=== PATIENT | female | born 2000 | race Caucasian/White ===

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

== ENCOUNTER → 2018-02-11 | Outpatient (REF) | payer OTHER | LOC: M LAB REF 12:40 | DX: Z34.83 Encounter for supervision of other normal pregnancy, third trimester (principal) ==

== ENCOUNTER 2018-03-02 16:59 | Outpatient (CLI) | payer OTHER | END 2018-03-02 20:35 | disposition home or self-care (01) | LOC: M LDO 16:59 | DX: O47.1 False labor at or after 37 completed weeks of gestation (principal); Z3A.39 39 weeks gestation of pregnancy | CPT/HCPCS: 59025 ==

== ENCOUNTER 2018-03-03 23:10 | Inpatient (IN) | payer OTHER ==
[2018-03-04 01:11] LABS: HEMOGLOBIN 10.4 g/dl (12.0-15.5); MEAN CORPUSCULAR HEMOGLOBIN 26.5 pg (27.0-33.0); MEAN CORPUSCULAR HGB CONC 32.5 g/dl (32.0-36.5); MEAN CORPUSCULAR VOLUME 81.6 fl (80.0-96.0); PLATELET COUNT, AUTOMATED 239 10^3/uL (150-450); RED BLOOD COUNT 3.92 10^6/uL (4.00-5.40); RED CELL DISTRIBUTION WIDTH 14.3 % (11.5-14.5)
[2018-03-04] MEDS: LR 1,000 ML IV ×3 (08:11→18:44)
[2018-03-04] MEDS: OXYTOCIN DRIP 30 UNITS in APPROPRIATE DILUENT 1 EA IV (08:12)
[2018-03-04] MEDS: ONDANSETRON 4MG/2ML VIAL (J2405) IV (09:04)
[2018-03-04] MEDS ORDERED: FENTANYL 2MCG/ML ROPIVACAINE 0.2% IN 0.9% NACL 200ML IVBAG As Ordered (09:51)
[2018-03-04] MEDS: LACTATED RINGER'S 1000 ML IV (10:24)
[2018-03-04] MEDS ORDERED: diphenhydrAMINE INJ 50MG/ML VIAL (J1200) IV (12:00)
[2018-03-04] MEDS ORDERED: ePHEDrine SULFATE 25 MG/5 ML(5MG/ML) SYRINGE IV (12:00)
[2018-03-04] MEDS ORDERED: EPIDURAL COMMENT XX (12:00)
[2018-03-04] MEDS ORDERED: EPIDURAL/PCA KEYS XX (12:00)
[2018-03-04] MEDS ORDERED: REFRIGERATOR IV KEYS XX (12:00)
[2018-03-04] MEDS ORDERED: FENTANYL/ROPIVACAINE/NACL BAG 200 ML EPIDURAL (12:00)
[2018-03-04] MEDS ORDERED: NALOXONE INJ 0.4 MG/1 ML VIAL (J2310) IV (12:00)
[2018-03-04] MEDS ORDERED: ONDANSETRON 4MG/2ML VIAL (J2405) IV (12:00)
[2018-03-04] MEDS ORDERED: LACTATED RINGER'S 1000 ML IV (12:00)
[2018-03-04 20:29] LABS: CORD GAS ABE V -6.6; CORD GAS HCO3 V 18.6 MEQ/L; CORD GAS O2 SAT V 84.5 %; CORD GAS PCO2 V 36.5 mmHg; CORD GAS PH V 7.325 UNITS; CORD GAS PO2 V 42.9 mmHg; CORD GAS SBC V 18.9 MEQ/L; CORD GAS TCO2 V 19.7 MEQ/L
[2018-03-04] MEDS ORDERED: DOCUSATE SODIUM 100 MG CAP PO (20:45)
[2018-03-04] MEDS ORDERED: DIBUCAINE 1% OINTMENT 30GM TOP (20:45)
[2018-03-04] MEDS: miSOPROStol 200 MCG TAB (S0191) PR (20:45)
[2018-03-04] MEDS ORDERED: MEASLES,MUMPS,RUBELLA VACCINE INJ (MMR-II) (90707) SC (20:45)
[2018-03-04] MEDS ORDERED: MOM 30ML SUSPENSION UDC PO (20:45)
[2018-03-04] MEDS ORDERED: ACETAMINOPHEN 500 MG TAB PO (20:45)
[2018-03-04] MEDS: METHYLERGONOVINE MALEATE 0.2 MG TAB PO (20:45)
[2018-03-04] MEDS ORDERED: ANUSOL HC CREAM 30GM TOP (20:45)
[2018-03-04] MEDS ORDERED: RHOGAM 300 MCG (1500 IU) INJ (J2790) IM (20:45)
[2018-03-04] MEDS: IBUPROFEN 800 MG TAB PO (22:48)
[2018-03-05] MEDS: METHYLERGONOVINE MALEATE 0.2 MG TAB PO ×3 (02:46→14:33)
[2018-03-05] MEDS: FERROUS SULFATE 325MG TAB PO (08:29)
[2018-03-05] MEDS: PRENATAL VITAMINS CHEWABLE TABLET PO (08:29)
[2018-03-05] MEDS ORDERED: METHYLERGONOVINE MALEATE 0.2 MG TAB PO (20:30)
[2018-03-05] MEDS: IBUPROFEN 800 MG TAB PO (20:41)
[2018-03-06] MEDS: FERROUS SULFATE 325MG TAB PO (08:38)
[2018-03-06] MEDS: PRENATAL VITAMINS CHEWABLE TABLET PO (08:39)
== END 2018-03-06 21:28 | disposition home or self-care (01) | DRG 560 ==
LOC: M LDO 23:10 → M LDI 03-04 00:18 → M OBS 03-04 22:26
PROVIDERS: Obstetrics & Gynecology
PROC: 10E0XZZ Delivery of Products of Conception, External Approach (ICD-10-PCS; principal; 2018-03-04)
PROC: 0KQM0ZZ Repair Perineum Muscle, Open Approach (ICD-10-PCS; 2018-03-04)
DX: O70.1 Second degree perineal laceration during delivery (principal); Z37.0 Single live birth; Z3A.39 39 weeks gestation of pregnancy; Z90.49 Acquired absence of other specified parts of digestive tract; Z88.0 Allergy status to penicillin; O77.0 Labor and delivery complicated by meconium in amniotic fluid

== ENCOUNTER 2018-04-01 16:17 | Emergency (ER) | payer OTHER | END 2018-04-01 17:49 | disposition home or self-care (01) | LOC: M ED 16:17 | DX: M54.41 Lumbago with sciatica, right side (principal) | CPT/HCPCS: 99282 ==

== ENCOUNTER → 2018-10-27 | Outpatient (CLI) | payer OTHER ==
[~2018-10-27] MED LIST: IBUP-1114 PO; MAPA500T2 PO; MULTTAB20 PO; PERC5TAB12 PO; PRED20TA PO; ZOFR4TAB14 PO
== END ==
LOC: M LAB 11:13
PROVIDERS: ATTEND Advanced Practice Midwife
DX: Z36.89 Encounter for other specified antenatal screening (principal)

== ENCOUNTER → 2018-12-01 | Outpatient (CLI) | payer OTHER ==
[2018-12-01 13:22] LABS: BASO % 0.4 % (0.0-1.0); EOS # 0.1 10^3/uL (0.0-0.50); EOS % 1.3 % (0.0-3.0); HEMATOCRIT 37.8 % (36.0-47.0); HEMOGLOBIN 12.2 g/dl (12.0-15.5); LYMPH # 1.9 10^3/uL (1.5-6.5); LYMPH % 18.7 % (24.0-44.0); MEAN CORPUSCULAR HEMOGLOBIN 26.9 pg (27.0-33.0); MEAN CORPUSCULAR HGB CONC 32.3 g/dl (32.0-36.5); MEAN CORPUSCULAR VOLUME 83.3 fl (80.0-96.0); MONO # 0.6 10^3/uL (0.0-0.8); MONO % 5.8 % (0.0-5.0); NEUTROPHILS # 7.6 10^3/uL (1.8-7.7); NEUTROPHILS % 73.5 % (36.0-66.0); PLATELET COUNT, AUTOMATED 279 10^3/uL (150-450); RED BLOOD COUNT 4.54 10^6/uL (4.00-5.40); WHITE BLOOD COUNT 10.4 10^3/uL (4.0-10.0)
[2018-12-01 14:45] LABS: CHLAMYDIA DNA AMPLIFICATION NEGATIVE (NEGATIVE); GC DNA AMPLIFICATION NEGATIVE (NEGATIVE)
[2018-12-02 10:51] LABS: HEPATITIS C VIRUS ABY INDEX 0.1 INDEX (<0.8); HIV 1&2 SCREEN CENTAUR NEGATIVE (NEGATIVE); RUBELLA IgG QUALITATIVE IMMUNE (IMMUNE)
== END ==
LOC: M SMT 11:55
PROVIDERS: ATTEND Advanced Practice Midwife
DX: Z36.89 Encounter for other specified antenatal screening (principal)

== ENCOUNTER → 2018-12-28 | Outpatient (CLI) | payer OTHER ==
--- NOTE | 2018-12-29 03:49 | REP ---
Clinical: Anatomical evaluation. Comparison: 12/09/2017 . Findings: Examination demonstrates a single live intrauterine in cephalic presentation. motion is identified by technologist. Placenta is noted posterior and grade 1 without evidence for placenta previa or abruption. Amniotic fluid volume is normal. Cervix measures 3.1 cm in length and appears closed. No evidence for nuchal cord. Gestational age by LMP 20 weeks 4 days with LILLIANA 05/13/2019 . Gestational age by current measurements 20 weeks 0 days with LILLIANA 05/17/2019 . FHR equals 127 beats per minute. BPD 4.7 cm 20 weeks 1 day HC 16.8 cm 19 weeks 3 days AC 14.9 cm 20 weeks 1 day FL 3.3 cm 20 weeks 3 days HL 3.3 cm 21 weeks 0 days HC/AC ratio 1.13 Estimated weight 337 grams ( 33rd percentile). Anatomical assessment demonstrates normal structures including cranium, choroid plexus, cavum, cerebellum/posterior fossa, facial features, lungs, four-chamber heart, diaphragm, stomach, cord insertion/three-vessel cord, kidneys/bladder, and extremities. Impression: 1. Single live intrauterine in cephalic presentation demonstrating appropriate interval growth. 2. Limited evaluation of the cardiac ventricular outflow tracts and spine. Remainder of the anatomical assessment is complete and normal. Electronically Signed by Radhames King MD 12/29/2018 03:42 A
== END ==
LOC: M RAD 09:28
PROVIDERS: ATTEND Obstetrics & Gynecology
DX: Z34.82 Encounter for supervision of other normal pregnancy, second trimester (principal); Z36.89 Encounter for other specified antenatal screening; Z3A.20 20 weeks gestation of pregnancy

== ENCOUNTER → 2018-12-29 | Outpatient (REF) | payer OTHER ==
[2018-12-29 15:44] LABS: FREE T4 0.99 NG/DL (0.78-1.33); THYROID STIMULATING HORMONE 0.917 uIU/ML (0.463-3.98)
== END ==
LOC: M SFHCADAM 11:18
PROVIDERS: ATTEND Physician Assistant Medical
DX: R00.2 Palpitations (principal)

== ENCOUNTER → 2019-01-04 | Outpatient (CLI) | payer OTHER ==
--- NOTE | 2019-01-08 23:36 | HOLTMON ---
[facility] Test Date: 2019-01-04 Pat Name: LITZY CELIS Department: Room: - Gender: Crystal Evaluator: La Nena Ratliff/TIFFANIE TAPIA : 2000 Requested By: ISABEL Acuña PA-C Order Number: [id number] Reading MD: Garrick Nieves Interpretive Statements PATIENT FEELS PALPITATIONS AND SHORT OF BREATH MOST OF THE TIME. Normal sinus rhythm with a maximum heart of 138 bpm noted at 11:48:06 AM and a minimum rate of 51 bpm at 2:36:49 AM. No activity reported with the maximum heart rate. Occasional benign sinus arrhythmia noted. No pause. No PACs. Very rare isolated PVCs. No ventricular run. Symptoms: Palpitations and shortness of breath without any associated arrhythmias. Relatively normal Holter monitor Electronically Signed On 01-08-2019 23:36:11 EDT by Garrick Nieves
== END ==
LOC: M EKG 13:00
PROVIDERS: ATTEND Physician Assistant Medical
DX: R00.2 Palpitations (principal)

== ENCOUNTER → 2019-02-16 | Outpatient (CLI) | payer OTHER ==
[2019-02-16 13:47] LABS: HEMATOCRIT 33.7 % (36.0-47.0); MEAN CORPUSCULAR HEMOGLOBIN 28.4 pg (27.0-33.0); MEAN CORPUSCULAR HGB CONC 32.6 g/dl (32.0-36.5); MEAN CORPUSCULAR VOLUME 86.9 fl (80.0-96.0); PLATELET COUNT, AUTOMATED 251 10^3/uL (150-450); RED BLOOD COUNT 3.88 10^6/uL (4.00-5.40); WHITE BLOOD COUNT 11.8 10^3/uL (4.0-10.0)
--- NOTE | 2019-02-16 13:49 | REP ---
OB ULTRASOUND: Real-time sonographic evaluation of gravid uterus performed utilizing transabdominal technique. There is a single living intrauterine gestation, estimated gestational age 27 weeks 5 days, EDC 05/13/2019. Today's measurements indicate appropriate growth. BPD 70 mm = 28 weeks 1 day, 60th percentile HC 258 mm = 28 weeks 0 days, 57th percentile AC 232 mm = 27 weeks 4 days, 46th percentile Femur length 54 mm = 28 weeks 4 days, 68th percentile HC/AC ratio 1.11, within normal range. Estimated weight 1152 grams, 48th percentile. Cervix closed and measures 3.3 cm in length. heart rate 145 beats per minute. Amniotic fluid within normal limits, XIAO 14.8 within normal range of 9.4 to 22.7. S/D ratio 3.07, and RI 0.67 within normal range. SEEN/GROSSLY UNREMARKABLE Lateral ventricles Yes Posterior fossa No Upper lip No Four-chamber heart Yes LVOT Yes RVOT Yes Stomach Yes Cord insertion Yes Three vessel cord Yes Kidneys Yes Bladder Yes Spine Yes position: Vertex. Placenta: Posterior and fundal and grade 0 with no previa or abruption. Electronically Signed by Leeroy Moya MD 02/16/2019 04:33 P
== END ==
LOC: M RAD 10:58
PROVIDERS: ATTEND Advanced Practice Midwife
DX: Z34.82 Encounter for supervision of other normal pregnancy, second trimester (principal); Z3A.27 27 weeks gestation of pregnancy

== ENCOUNTER → 2019-04-29 | Outpatient (REF) | payer OTHER ==
[~2019-04-29] MED LIST changes: +PRENTAB9 PO
== END ==
LOC: M LAB REF 12:54
PROVIDERS: ATTEND Advanced Practice Midwife
DX: Z34.83 Encounter for supervision of other normal pregnancy, third trimester (principal)

== ENCOUNTER → 2019-05-06 | Outpatient (CLI) | payer OTHER | LOC: M SMT 10:46 | PROVIDERS: ATTEND Advanced Practice Midwife | DX: Z34.83 Encounter for supervision of other normal pregnancy, third trimester (principal) ==

== ENCOUNTER 2019-05-09 11:42 | Outpatient (CLI) | payer OTHER ==
[~2019-05-09] VITALS: Ht 172.7 cm; Wt 104.5 kg
[~2019-05-09 11:42] MED LIST changes: -PRENTAB9 PO
[2019-05-09 12:00] VITALS: BP 142/60
[2019-05-09] MEDS ORDERED: PRENTAB9 PO (12:14)
[2019-05-09 12:24] VITALS: BP 104/50
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
== END 2019-05-09 14:26 | disposition home or self-care (01) ==
LOC: M LDO 11:42
PROVIDERS: ATTEND Obstetrics & Gynecology
DX: Z04.3 Encounter for examination and observation following other accident (principal); M54.5 Low back pain; Z3A.37 37 weeks gestation of pregnancy
CPT/HCPCS: 59025; 76815; 76819; 76820; G0378; G0463

== ENCOUNTER 2019-05-11 21:46 | Inpatient (IN) | payer OTHER ==
[~2019-05-11] VITALS: Ht 172.7 cm; Wt 103.1 kg
[~2019-05-11 21:46] MED LIST changes: +PRENTAB9 PO
[2019-05-11 22:09] VITALS: BP 117/66
[2019-05-11 23:33] VITALS: BP 115/63
[2019-05-12] VITALS (49 sets, daily range): BP systolic 108–168; BP diastolic 52–92
[2019-05-12 01:35] LABS: HEMATOCRIT 32.2 % (36.0-47.0); HEMOGLOBIN 10.2 g/dl (12.0-15.5); MEAN CORPUSCULAR HGB CONC 31.7 g/dl (32.0-36.5); MEAN CORPUSCULAR VOLUME 78.9 fl (80.0-96.0); PLATELET COUNT, AUTOMATED 247 10^3/uL (150-450); RED BLOOD COUNT 4.08 10^6/uL (4.00-5.40); WHITE BLOOD COUNT 12.1 10^3/uL (4.0-10.0)
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
[2019-05-12] MEDS ORDERED: OXYTOCIN DRIP 30 UNITS in APPROPRIATE DILUENT 1 EA IV SCH (08:00)
[2019-05-12] MEDS: LR 1,000 ML IV SCH ×3 (08:11→21:47)
[2019-05-12] MEDS ORDERED: FENTANYL 2MCG/ML ROPIVACAINE 0.2% IN 0.9% NACL 100ML IVBAG As Ordered ONE (13:46)
[2019-05-12] MEDS: FENTANYL/ROPIVACAINE/NACL BAG 100 ML EPIDURAL SCH ×2 (14:05→21:52)
[2019-05-12] MEDS ORDERED: ePHEDrine SULFATE 25 MG/5 ML(5MG/ML) SYRINGE IV PRN (15:00)
[2019-05-12] MEDS ORDERED: EPIDURAL COMMENT XX SCH (15:00)
[2019-05-12] MEDS ORDERED: EPIDURAL/PCA KEYS XX PRN (15:00)
[2019-05-12] MEDS ORDERED: diphenhydrAMINE INJ 50MG/ML VIAL (J1200) IV PRN (15:00)
[2019-05-12] MEDS ORDERED: ONDANSETRON 4MG/2ML VIAL (J2405) IV PRN (15:00)
[2019-05-12] MEDS ORDERED: NALOXONE INJ 0.4 MG/1 ML VIAL (J2310) IV PRN (15:00)
[2019-05-12] MEDS ORDERED: REFRIGERATOR IV KEYS XX PRN (15:00)
[2019-05-12] MEDS ORDERED: LACTATED RINGER'S 1000 ML IV PRN (15:00)
[2019-05-13] VITALS (14 sets, daily range): BP systolic 119–143; BP diastolic 57–89
[2019-05-13] MEDS ORDERED: OXYTOCIN DRIP 30 UNITS in APPROPRIATE DILUENT 1 EA IV SCH ×2 (00:50→02:06)
[2019-05-13] MEDS ORDERED: METHYLERGONOVINE MALEATE 0.2 MG TAB PO PRN (01:00)
[2019-05-13] MEDS ORDERED: IBUPROFEN 600 MG TAB PO PRN (01:00)
[2019-05-13] MEDS ORDERED: IBUPROFEN 800 MG TAB PO PRN (01:00)
[2019-05-13] MEDS ORDERED: LIDOCAINE 1% MDV 20ML VIAL INFIL ONE (01:00)
[2019-05-13] MEDS ORDERED: DOCUSATE SODIUM 100 MG CAP PO PRN (01:00)
[2019-05-13] MEDS ORDERED: ACETAMINOPHEN 500 MG TAB PO PRN (01:00)
[2019-05-13] MEDS ORDERED: ANUSOL HC CREAM 30GM TOP PRN (01:00)
[2019-05-13] MEDS ORDERED: MEASLES,MUMPS,RUBELLA VACCINE INJ (MMR-II) (90707) SC SCH (01:00)
[2019-05-13] MEDS ORDERED: DIBUCAINE 1% OINTMENT 30GM TOP PRN (01:00)
[2019-05-13] MEDS ORDERED: ACETAMINOPHEN TAB 650MG DOSE (2X325MG) PO PRN (01:00)
[2019-05-13] MEDS ORDERED: RHOGAM 300 MCG (1500 IU) INJ (J2790) IM SCH (01:00)
[2019-05-13] MEDS ORDERED: METHYLERGONOVINE MALEATE 0.2 MG/ML VIAL (J2210) IM ONE (02:15)
[2019-05-13] MEDS ORDERED: miSOPROStol 200 MCG TAB (S0191) PR ONE (02:30)
--- NOTE | 2019-05-13 05:22 | DN ---
DATE OF DELIVERY:05/12/2019 Miroslava is a 18-year-old 2, para 2-0-0-2. She was admitted to labor and delivery with a latent labor. Her labor was augmented with IV Pitocin and assisted rupture of membranes. She reached full dilation at 2359. She pushed to a normal spontaneous vaginal delivery of a live female in occiput anterior (OA) position with restitution to right occiput transverse (ROT) position at 0010. There was no nuchal cord. There was a mild dystocia that was relieved with McRobert's maneuver. The was moving its extremities without any difficulties. The was then placed on the maternal abdomen crying and active. Mouth and nares were bulb suctioned. The cord was clamped times two once pulsations ceased and cut by the mother under my direction. Spontaneous expulsion of an intact placenta with three-vessel cord by Ham mechanism was at 0017. Uterine hemostasis achieved with IV Pitocin rapid infusion and uterine fundal massage. Estimated blood loss 350 mL. Perineum and vagina inspected, right labial laceration noted. The laceration was infiltrated with 1% lidocaine and repaired with 3-0 Rapide in the usual fashion. [place] female weight 9 pounds 3 ounces, 4160 grams, 05/10. Mom plans to both breast and bottle feed her daughter. The couple have named daughter Obie. At the close of delivery lap counts, needle counts and instrument counts were correct and verified.
[2019-05-13] MEDS: PRENATAL VITAMINS CHEWABLE TABLET PO SCH (09:00)
[2019-05-14 05:59] VITALS: BP 107/53
[2019-05-14] MEDS: PRENATAL VITAMINS CHEWABLE TABLET PO SCH (09:00)
== END 2019-05-14 12:35 | disposition home or self-care (01) | DRG 560 ==
LOC: M LDO 21:46 → M LDI 05-12 00:32 → M OBS 05-13 04:42
PROVIDERS: ADMIT Specialist; ATTEND Specialist
PROC: 10E0XZZ Delivery of Products of Conception, External Approach (ICD-10-PCS; principal; 2019-05-12)
PROC: 0HQ9XZZ Repair Perineum Skin, External Approach (ICD-10-PCS; 2019-05-12)
PROC: 10907ZC Drainage of Amniotic Fluid, Therapeutic from Products of Conception, Via Natural or Artificial Opening (ICD-10-PCS; 2019-05-12)
DX: O66.0 Obstructed labor due to shoulder dystocia (principal); O70.0 First degree perineal laceration during delivery; Z37.0 Single live birth; Z3A.38 38 weeks gestation of pregnancy; Z88.0 Allergy status to penicillin

== ENCOUNTER → 2019-05-20 | Outpatient (CLI) | payer OTHER ==
[~2019-05-20] MED LIST changes: +ISOVUE-370 76% 100ML VIAL (Q9967) As Ordered ONE
--- NOTE | 2019-05-20 12:43 | REP ---
CT of the chest with IV contrast, CT pulmonary artery angiography: Comparison is 09/15/2014. There are no emboli in the pulmonary trunk or central pulmonary arteries. There are no emboli in the pulmonary artery lobe or segment branches. There are no infiltrates or pleural effusions. There are no masses or nodules. There is no mediastinal, hilar or axillary lymphadenopathy. The thoracic aorta is unremarkable. Cardiac size is normal. Upper abdomen: There are surgical clips in the gallbladder fossa. This is unchanged. The visualized areas of the liver, pancreas, spleen, adrenals and renal upper poles are unremarkable. Impression: There are no pulmonary emboli. Otherwise, essentially negative CT study of the chest. Cholecystectomy. Electronically Signed by Leeroy Herrera MD 05/20/2019 12:35 P
== END ==
LOC: M RAD 11:23
PROVIDERS: ATTEND Physician Assistant Medical
DX: R06.09 Other forms of dyspnea (principal); Z90.49 Acquired absence of other specified parts of digestive tract
CPT/HCPCS: 36415; 71275; 85379; Q9967

== ENCOUNTER → 2019-10-26 | Outpatient (CLI) | payer OTHER ==
[~2019-10-26] MED LIST changes: -ISOVUE-370 76% 100ML VIAL (Q9967) As Ordered ONE
--- NOTE | 2019-10-26 18:14 | REP ---
Lumbar spine series: Five views. History: Low back pain. Findings: There are clips in the right upper quadrant. There is straightening of the lumbar spine. Lumbar vertebral body heights are preserved. There is mild disc space narrowing at L4-5. Pedicles and posterior elements are intact. Psoas margins are symmetric. Sacrum and SI joints are unremarkable. An IUD is noted in the pelvis. Bowel gas pattern is unremarkable. Impression: Straightening. Disc space narrowing at L4-5. Otherwise negative. Electronically Signed by Americo Kline MD 10/27/2019 07:26 P
== END ==
LOC: M ADAMS 15:31
PROVIDERS: ATTEND Physician Assistant Medical
DX: M54.41 Lumbago with sciatica, right side (principal)

== ENCOUNTER → 2019-12-24 | Outpatient (REF) | payer OTHER ==
[2019-12-24 18:05] LABS: BASO # 0.1 10^3/uL (0.0-0.2); BASO % 0.4 % (0.0-1.0); EOS % 0.2 % (0.0-3.0); HEMATOCRIT 41.8 % (36.0-47.0); HEMOGLOBIN 13.1 g/dl (12.0-15.5); LYMPH # 2.6 10^3/uL (1.5-5.0); LYMPH % 20.1 % (24.0-44.0); MEAN CORPUSCULAR HGB CONC 31.3 g/dl (32.0-36.5); MEAN CORPUSCULAR VOLUME 79.9 fl (80.0-96.0); MONO # 0.8 10^3/uL (0.0-0.8); MONO % 6.3 % (0.0-5.0); NEUTROPHILS # 9.5 10^3/uL (1.5-8.5); NEUTROPHILS % 72.5 % (36.0-66.0); PLATELET COUNT, AUTOMATED 350 10^3/uL (150-450); RED BLOOD COUNT 5.23 10^6/uL (4.00-5.40); WHITE BLOOD COUNT 13.1 10^3/uL (4.0-10.0)
[2019-12-24 18:24] LABS: FREE T4 1.1 NG/DL (0.76-1.46); THYROID STIMULATING HORMONE 1.48 uIU/ML (0.358-3.740)
== END ==
LOC: M SFHCADAM 15:21
PROVIDERS: ATTEND Physician Assistant Medical
DX: F34.1 Dysthymic disorder (principal)

== ENCOUNTER → 2020-09-08 | Outpatient (CLI) | payer SELFPAY | LOC: M LABSMTC 10:17 | PROVIDERS: ATTEND Pediatrics | DX: Z20.822 Contact with and (suspected) exposure to COVID-19 (principal) ==

== ENCOUNTER 2020-12-22 15:06 | Emergency (ER) | payer OTHER ==
[~2020-12-22] VITALS: Ht 172.7 cm; Wt 104.5 kg
[2020-12-22] MEDS ORDERED: SERT-141 PO (15:23)
[2020-12-22] MEDS ORDERED: diazePAM 10MG/2ML SYRINGE (J3360 PER 5MG) IV ONE (16:05)
[2020-12-22] MEDS ORDERED: LIDOCAINE 5% (LIDODERM) PATCH TD ONE (16:05)
[2020-12-22] MEDS ORDERED: KETOROLAC 30 MG/ML 1ML VIAL IV ONE (16:05)
[2020-12-22] MEDS ORDERED: VALI5TAB PO (16:51)
[2020-12-22] MEDS ORDERED: LIDO5DIS41 TD (16:52)
[2020-12-22] MEDS ORDERED: NAPR-837 PO (16:52)
[2020-12-22 17:08] VITALS: BP 122/84
[2020-12-22] MEDS ORDERED: **NOTE PATIENT COMMENT** MISC XX SCH (21:00)
== END 2020-12-22 17:12 | disposition home or self-care (01) ==
LOC: M ED 15:06
DX: M54.16 Radiculopathy, lumbar region (principal); Z88.0 Allergy status to penicillin
CPT/HCPCS: 96374; 96375; 99283; J1885; J3360

== ENCOUNTER 2021-04-17 11:27 | Emergency (ER) | payer OTHER ==
[~2021-04-17] VITALS: Ht 172.7 cm; Wt 106.8 kg
[2021-04-17 11:27] VITALS: BP 121/68
[~2021-04-17 11:27] MED LIST changes: +LIDO5DIS41 TD; +NAPR-837 PO; +SERT-141 PO; +VALI5TAB PO
[2021-04-17] MEDS ORDERED: MELO15TA28 (11:35)
[2021-04-17] MEDS ORDERED: BUSP10TA (11:35)
[2021-04-17] MEDS ORDERED: MEDR4PAK PO (13:06)
== END 2021-04-17 13:15 | disposition home or self-care (01) ==
LOC: M ED 11:27
DX: M54.41 Lumbago with sciatica, right side (principal); Z88.0 Allergy status to penicillin; Z79.899 Other long term (current) drug therapy

== ENCOUNTER → 2021-04-30 | Outpatient (CLI) | payer OTHER ==
[~2021-04-30] MED LIST changes: +BUSP10TA; +MEDR4PAK PO; +MELO15TA28
--- NOTE | 2021-04-30 18:59 | REPVR ---
PROCEDURE INFORMATION: Exam: MR Lumbar Spine Without Contrast Exam date and time: 04/30/2021 2:46 PM Age: 20 years old Clinical indication: Sciatica; Right; Additional info: Sciatica of RT side lumbago chronic pn paresthesia TECHNIQUE: Imaging protocol: Multiplanar magnetic resonance images of the lumbar spine without intravenous contrast. COMPARISON: DX SPINE LS COMPLETE 10/26/2019 3:36 PM FINDINGS: Limitations: Examination is limited by motion artifact. Vertebral body heights are maintained. Degenerative disc height loss at L4-L5 and L5-S1. Remaining disc space heights are preserved. No abnormal marrow signal. No cord compression. No abnormal cord signal. Conus medullaris terminates at the L1 level. Paravertebral soft tissues are unremarkable. L1-L2: No significant canal or foraminal narrowing. L2-L3: No significant canal or foraminal narrowing. L3-L4: No significant canal or foraminal narrowing. L4-L5: Left paracentral disc protrusion causing mild canal narrowing and effacing the left lateral recess with slight impingement upon the traversing left L5 nerve root. No significant foraminal narrowing. L5-S1: Large right paracentral inferiorly oriented disc extrusion completely effacing the right lateral recess and compressing the traversing right S1 nerve root. Mild right foraminal narrowing. IMPRESSION: 1. Large right paracentral inferiorly oriented disc extrusion at L5-S1 and compressing the traversing right S1 nerve root. 2. Left paracentral disc protrusion at L4-L5 slightly impinging the traversing left L5 nerve root. Electronically signed by: Vaughn Salcido On 04/30/2021 18:58:31 PM
== END ==
LOC: M RAD 14:02
PROVIDERS: ATTEND Physician Assistant Medical
DX: M54.41 Lumbago with sciatica, right side (principal); R20.2 Paresthesia of skin; G89.29 Other chronic pain; M51.26 Other intervertebral disc displacement, lumbar region; M51.27 Other intervertebral disc displacement, lumbosacral region

== ENCOUNTER → 2021-07-04 | Outpatient (REF) | payer OTHER | LOC: M SFHCADAM 17:09 | PROVIDERS: ATTEND Family Medicine | DX: Z20.822 Contact with and (suspected) exposure to COVID-19 (principal) ==

== ENCOUNTER → 2021-07-04 | Outpatient (REF) | payer OTHER | LOC: M SFHCADAM 15:41 | PROVIDERS: ATTEND Family Medicine | DX: Z20.822 Contact with and (suspected) exposure to COVID-19 (principal); Z53.9 Procedure and treatment not carried out, unspecified reason ==

== ENCOUNTER → 2021-08-22 | Outpatient (REF) | payer OTHER ==
[2021-08-22 19:24] LABS: GC DNA AMPLIFICATION NEGATIVE (NEGATIVE)
== END ==
LOC: M SFHCWAGY 17:14
PROVIDERS: ATTEND Obstetrics & Gynecology
DX: Z12.4 Encounter for screening for malignant neoplasm of cervix (principal); N93.9 Abnormal uterine and vaginal bleeding, unspecified

== ENCOUNTER → 2021-08-22 | Outpatient (REF) | payer OTHER | LOC: M SFHCWAGY 16:29 | PROVIDERS: ATTEND Physician Assistant | DX: R05.9 Cough, unspecified (principal) ==

== ENCOUNTER → 2021-09-03 | Outpatient (CLI) | payer OTHER ==
--- NOTE | 2021-09-03 10:18 | REP ---
INDICATION: ABNORMAL UTERINE BLEEDING. COMPARISON: None. TECHNIQUE: Transvesical and transvaginal technique FINDINGS: The uterus measures 8.1 x 4.9 x 3.4 cm. The parenchymal echo pattern is within normal limits. A slightly complex nabothian cyst is identified. The endometrial echo complex is difficult to evaluate secondary to a specular reflection seen within the endometrial cavity consistent with an IUD. The most distal aspect of the specular reflection is not identified. The right ovary measures 2.4 x 1.8 x 1.9 cm and is within normal limits with an RI 0.49 The left ovary measures 2.4 x 2.4 x 2.3 cm and is within normal limits with an RI 0.47. Urinary bladder measures 5 x 2 x 6 cm. IMPRESSION: 1. IUD as described above. 2. Slightly complex appearing nabothian cyst. Consider follow-up. <Electronically signed by Rolo Tavarez > 09/03/21 [id number]
== END ==
LOC: M WHC 08:38
PROVIDERS: ATTEND Obstetrics & Gynecology
DX: N93.9 Abnormal uterine and vaginal bleeding, unspecified (principal); N88.8 Other specified noninflammatory disorders of cervix uteri; Z97.5 Presence of (intrauterine) contraceptive device

== ENCOUNTER → 2021-09-28 | Outpatient (CLI) | payer OTHER | LOC: M PLAIMG 12:21 | PROVIDERS: ATTEND Physician Assistant Medical | DX: R51.9 Headache, unspecified (principal); J32.0 Chronic maxillary sinusitis ==

== ENCOUNTER → 2022-10-16 | Outpatient (CLI) | payer OTHER | LOC: M RAD 15:16 | PROVIDERS: ATTEND Otolaryngology | DX: G50.1 Atypical facial pain (principal); J32.0 Chronic maxillary sinusitis; J32.2 Chronic ethmoidal sinusitis ==

== ENCOUNTER → 2022-11-25 | Outpatient (CLI) | payer OTHER | LOC: M PLALAB 13:51 | PROVIDERS: ATTEND Advanced Practice Midwife | DX: Z32.01 Encounter for pregnancy test, result positive (principal) ==

== ENCOUNTER → 2022-12-10 | Outpatient (REF) | payer OTHER | LOC: M SFHCWAGY 13:11 | PROVIDERS: ATTEND Obstetrics & Gynecology | DX: Z12.4 Encounter for screening for malignant neoplasm of cervix (principal) ==

== ENCOUNTER 2023-01-03 10:12 | Emergency (ER) | payer OTHER, MEDICAID ==
[~2023-01-03] VITALS: Ht 170.2 cm; Wt 97.4 kg
[2023-01-03] MEDS ORDERED: predniSONE 50 MG TAB PO ONE (13:15)
[2023-01-03] MEDS ORDERED: PRED10TA2 PO (13:20)
[2023-01-03] MEDS ORDERED: predniSONE 20 MG TAB PO ONE (13:20)
[2023-01-03] MEDS ORDERED: ZANA6CAP PO (13:21)
[2023-01-03 13:31] VITALS: BP 123/64
== END 2023-01-03 13:37 | disposition home or self-care (01) ==
LOC: M ED 10:12
DX: M54.50 Low back pain, unspecified (principal); M46.1 Sacroiliitis, not elsewhere classified; F41.9 Anxiety disorder, unspecified; F32.9 Major depressive disorder, single episode, unspecified; Z79.899 Other long term (current) drug therapy; Z88.0 Allergy status to penicillin
CPT/HCPCS: 99283; J7512

== ENCOUNTER → 2023-07-07 | Outpatient (REF) | payer OTHER, MEDICAID ==
[~2023-07-07] MED LIST changes: +PRED10TA2 PO; +ZANA6CAP PO
[2023-07-07 13:39] LABS: ALBUMIN 4.1 G/DL (3.2-5.2); BILIRUBIN,DIRECT 0.1 MG/DL (<0.4); BILIRUBIN,TOTAL 0.5 MG/DL (0.3-1.2); TOTAL PROTEIN 7.2 G/DL (5.7-8.2)
== END ==
LOC: M LABDRWAD 12:31
PROVIDERS: ATTEND Psychiatry & Neurology Psychiatry
DX: F41.1 Generalized anxiety disorder (principal); F33.0 Major depressive disorder, recurrent, mild; F42.2 Mixed obsessional thoughts and acts; F90.0 Attention-deficit hyperactivity disorder, predominantly inattentive type

== ENCOUNTER 2023-12-04 09:48 | Emergency (ER) | payer MEDICAID, OTHER ==
[~2023-12-04] VITALS: Ht 172.7 cm; Wt 99.1 kg
[~2023-12-04 09:48] MED LIST changes: +ATOM80CA6 PO; +MELO15TA28 PO; +METH-1164 PO; +VENL75CA47 PO
[2023-12-04] MEDS ORDERED: CLONI1TA PO (09:55)
[2023-12-04] MEDS ORDERED: METH-1164 PO (09:57)
[2023-12-04] MEDS: BOOSTRIX VACCINE (TETANUS/DIPHTH/ACEL. PERTUSSIS) 0.5ML SYR IM ONE (11:05)
[2023-12-04] MEDS ORDERED: DOXY-443 PO (11:31)
[2023-12-04] MEDS ORDERED: METR-265 PO (11:31)
[2023-12-04 11:41] VITALS: BP 106/58; TEMP 97.4; O2SAT 100
== END 2023-12-04 11:42 | disposition home or self-care (01) ==
LOC: M ED 09:48
DX: S61.441A Puncture wound with foreign body of right hand, initial encounter (principal); W54.0XXA Bitten by dog, initial encounter; Y92.009 Unspecified place in unspecified non-institutional (private) residence as the place of occurrence of the external cause; Y93.89 Activity, other specified; Y99.9 Unspecified external cause status; Z88.0 Allergy status to penicillin

== ENCOUNTER → 2023-12-25 | Outpatient (CLI) | payer OTHER ==
[~2023-12-25] MED LIST changes: +CLONI1TA PO; +DOXY-443 PO; +METR-265 PO
== END ==
LOC: M PLALAB 15:02
PROVIDERS: ATTEND Obstetrics & Gynecology
DX: Z32.00 Encounter for pregnancy test, result unknown (principal)

== ENCOUNTER → 2023-12-27 | Outpatient (CLI) | payer OTHER | LOC: M LAB 08:10 | PROVIDERS: ATTEND Obstetrics & Gynecology | DX: Z32.00 Encounter for pregnancy test, result unknown (principal) ==

== ENCOUNTER → 2024-05-16 | Outpatient (REF) | payer OTHER ==
[~2024-05-16] MED LIST changes: +DOXY-323 PO; -DOXY-443 PO
== END ==
LOC: M LAB REF 10:00
PROVIDERS: ATTEND Physician Assistant Medical
DX: B34.9 Viral infection, unspecified (principal)

== ENCOUNTER 2025-02-28 14:59 | Emergency (ER) | payer OTHER ==
[~2025-02-28] VITALS: Ht 170.2 cm; Wt 93.2 kg
[~2025-02-28 14:59] MED LIST changes: -DOXY-323 PO; +DOXY-441 PO; +LIDO1ADH93 TD; -LIDO5DIS41 TD
[2025-02-28 18:16] LABS: BASO # 0.1 10^3/uL (0.0-0.2); BASO % 0.7 % (0.0-1.0); EOS # 0.6 10^3/uL (0.0-0.5); EOS % 4.6 % (0.0-3.0); HEMATOCRIT 42.7 % (36.0-47.0); LYMPH # 3.3 10^3/uL (1.5-5.0); LYMPH % 26.5 % (24.0-44.0); MEAN CORPUSCULAR HGB CONC 32.8 g/dl (32.0-36.5); MEAN CORPUSCULAR VOLUME 91.6 fl (80.0-96.0); NEUTROPHILS # 7.5 10^3/uL (1.5-8.5); PLATELET COUNT, AUTOMATED 295 10^3/uL (150-450); RED BLOOD COUNT 4.66 10^6/uL (4.00-5.40); WHITE BLOOD COUNT 12.5 10^3/uL (4.0-10.0)
[2025-02-28 18:22] LABS: KETONE, URINE AUTO RFX NEGATIVE (NEGATIVE); LEUKOCYTE ESTERASE UR AUTO RFX NEGATIVE (NEGATIVE); MUCUS, URINE RFX SMALL (NEGATIVE); NITRITE, URINE AUTO RFX NEGATIVE (NEGATIVE); RBC, URINE AUTO RFX 1 /HPF (0-3); SQUAM EPITHELIAL CELL UR AURFX 4 /HPF (0-6); WBC, URINE AUTO RFX 1 /HPF (0-3)
[2025-02-28 18:39] LABS: INR 1.04; PARTIAL THROMBOPLASTIN TIME 26.1 SECONDS (24.8-34.2); PROTHROMBIN TIME 13.9 SECONDS (12.5-14.5)
[2025-02-28 19:02] LABS: LIPASE 49 U/L (12-53)
[2025-02-28 19:04] LABS: AMYLASE 62 U/L (30-118)
[2025-02-28 19:05] LABS: ALBUMIN 4.1 G/DL (3.2-5.2); ALKALINE PHOSPHATASE 91 U/L (35-104); ALT/SGPT 33 U/L (7.0-40); AST/SGOT 26 U/L (<34); BILIRUBIN,DIRECT 0.1 MG/DL (<0.4); BILIRUBIN,TOTAL 0.4 MG/DL (0.3-1.2); BLOOD UREA NITROGEN 12 MG/DL (9-23); CALCIUM LEVEL 9.7 MG/DL (8.5-10.1); CARBON DIOXIDE LEVEL 30 MMOL/L (20-31); CHLORIDE LEVEL 103 MMOL/L (98-107); CREATININE FOR GFR 0.66 MG/DL (0.55-1.30); GLOMERULAR FILTRATION RATE > 90.0 (>60); GLUCOSE, FASTING 73 MG/DL (60-100); POTASSIUM SERUM 4.3 MMOL/L (3.5-5.1); SODIUM LEVEL 145 MMOL/L (136-145); TOTAL PROTEIN 7.1 G/DL (5.7-8.2)
[2025-02-28 19:36] LABS: HCG, SERUM QUALITATIVE NEGATIVE (NEGATIVE)
[2025-02-28 20:03] LABS: HCG, SERUM QUANTITATIVE 6.7 MIU/ML (<4.2)
[2025-02-28] MEDS ORDERED: ISOVUE-370 76% 100 ML VIAL As Ordered ONE (20:28)
[2025-02-28] MEDS: DOCUSATE SODIUM 100 MG CAPSULE PO ONE (23:35)
[2025-02-28] MEDS ORDERED: COLA100C5 PO (23:36)
[2025-02-28] MEDS: KETOROLAC 30 MG/ML 1 ML VIAL IV ONE (23:36)
[2025-02-28 23:44] VITALS: BP 108/72; TEMP 98.5; O2SAT 99
== END 2025-02-28 23:57 | disposition home or self-care (01) ==
LOC: M ED 14:59
DX: N83.202 Unspecified ovarian cyst, left side (principal); M54.9 Dorsalgia, unspecified; F41.9 Anxiety disorder, unspecified; F32.A Depression, unspecified; Z88.0 Allergy status to penicillin
CPT/HCPCS: 74177; 76830; 80047; 80048; 80076; 81001; 82150; 83605; 83690; 84702; 84703; 85025; 85610; 85730; 93976; 96374; 99284; J1885; Q9967

== ENCOUNTER → 2025-03-14 | Outpatient (CLI) | payer OTHER ==
[~2025-03-14] MED LIST changes: +COLA100C5 PO
[2025-03-14 14:03] LABS: HCG, SERUM QUALITATIVE NEGATIVE (NEGATIVE)
== END ==
LOC: M PLALAB 11:08
PROVIDERS: ATTEND Advanced Practice Midwife
DX: O02.81 Inappropriate change in quantitative human chorionic gonadotropin (hCG) in early pregnancy (principal)

== ENCOUNTER → 2025-05-19 | Outpatient (CLI) | payer OTHER | LOC: M PLALAB 15:07 | PROVIDERS: ATTEND Obstetrics & Gynecology | DX: Z32.01 Encounter for pregnancy test, result positive (principal) ==

== ENCOUNTER → 2025-06-07 | Outpatient (CLI) | payer OTHER | LOC: M PLALAB 16:29 | PROVIDERS: ATTEND Student in an Organized Health Care Education/Training Program | DX: N92.6 Irregular menstruation, unspecified (principal) ==

== ENCOUNTER → 2025-06-20 | Outpatient (CLI) | payer OTHER | LOC: M PLALAB 15:25 | PROVIDERS: ATTEND Advanced Practice Midwife | DX: O02.81 Inappropriate change in quantitative human chorionic gonadotropin (hCG) in early pregnancy (principal) ==

== ENCOUNTER 2025-07-09 03:48 | Emergency (ER) | payer MEDICAID, OTHER ==
[~2025-07-09] VITALS: Ht 170.2 cm; Wt 112.0 kg
[2025-07-09 04:48] LABS: APPEARANCE, URINE CLEAR (CLEAR); BACTERIA, URINE AUTO NEGATIVE (NEGATIVE); BILIRUBIN, URINE AUTO NEGATIVE (NEGATIVE); BLOOD, URINE BLOOD 3+ (NEGATIVE); GLUCOSE, URINE (UA) AUTO NEGATIVE (NEGATIVE); KETONE, URINE AUTO NEGATIVE (NEGATIVE); LEUKOCYTE ESTERASE, URINE AUTO TRACE (NEGATIVE); NITRITE, URINE AUTO NEGATIVE (NEGATIVE); PROTEIN, URINE AUTO NEGATIVE (NEGATIVE); RBC, URINE AUTO 2 /HPF (0-3); SPECIFIC GRAVITY URINE AUTO 1.019 (1.002-1.035); SQUAMOUS EPITHELIAL CELL UR AU 2 /HPF (0-6); UROBILINOGEN, URINE AUTO 0.2 mg/dL (0.0-2.0); WBC, URINE AUTO 0 /HPF (0-3)
[2025-07-09 04:50] LABS: BASO # 0.1 10^3/uL (0.0-0.2); BASO % 0.5 % (0.0-1.0); EOS # 0.5 10^3/uL (0.0-0.5); EOS % 4.6 % (0.0-3.0); LYMPH # 2.6 10^3/uL (1.5-5.0); LYMPH % 22.7 % (24.0-44.0); MONO # 0.8 10^3/uL (0.0-0.8); MONO % 6.8 % (2.0-8.0); NEUTROPHILS # 7.5 10^3/uL (1.5-8.5); NEUTROPHILS % 65.1 % (36.0-66.0); PLATELET COUNT, AUTOMATED 264 10^3/uL (150-450)
[2025-07-09 04:52] LABS: CALCIUM LEVEL 8.0 MG/DL (8.5-10.1); CARBON DIOXIDE LEVEL 24 MMOL/L (20-31); CHLORIDE LEVEL 104 MMOL/L (98-107); CREATININE FOR GFR 0.52 MG/DL (0.55-1.30); GLOMERULAR FILTRATION RATE > 90.0 (>60); POTASSIUM SERUM 3.9 MMOL/L (3.5-5.1); SODIUM LEVEL 138 MMOL/L (136-145)
[2025-07-09 09:00] VITALS: BP 115/61
[2025-07-09 09:03] VITALS: TEMP 97.7; O2SAT 98
== END 2025-07-09 09:18 | disposition home or self-care (01) ==
LOC: M ED 03:48
DX: O20.0 Threatened abortion (principal); O99.281 Endocrine, nutritional and metabolic diseases complicating pregnancy, first trimester; O99.341 Other mental disorders complicating pregnancy, first trimester; E83.51 Hypocalcemia; F41.9 Anxiety disorder, unspecified; F32.A Depression, unspecified; Z3A.08 8 weeks gestation of pregnancy; Z87.59 Personal history of other complications of pregnancy, childbirth and the puerperium; Z79.899 Other long term (current) drug therapy; Z88.0 Allergy status to penicillin

== ENCOUNTER → 2025-07-13 | Outpatient (REF) | payer OTHER | LOC: M PLALAB 14:25 | PROVIDERS: ATTEND Student in an Organized Health Care Education/Training Program | DX: Z34.80 Encounter for supervision of other normal pregnancy, unspecified trimester (principal) ==

== ENCOUNTER → 2025-07-19 | Outpatient (CLI) | payer OTHER ==
[2025-07-19 18:29] LABS: PLATELET COUNT, AUTOMATED 276 10^3/uL (150-450)
[2025-07-19 19:26] LABS: HIV 1&2 SCREEN NEGATIVE (NEGATIVE)
[2025-07-19 19:34] LABS: HEPATITIS C VIRUS ABY INDEX < 0.02 INDEX (<0.8)
[2025-07-19 19:52] LABS: Trichomonas vaginalis (AMP) NOT DETECTED (NEGATIVE)
[2025-07-19 20:16] LABS: GC DNA AMPLIFICATION NEGATIVE (NEGATIVE)
== END ==
LOC: M PLALAB 15:40
PROVIDERS: ATTEND Student in an Organized Health Care Education/Training Program
DX: Z34.80 Encounter for supervision of other normal pregnancy, unspecified trimester (principal)

== ENCOUNTER 2025-08-01 09:52 | Emergency (ER) | payer OTHER ==
[~2025-08-01] VITALS: Ht 170.2 cm; Wt 114.6 kg
[2025-08-01 10:19] LABS: BASO # 0.0 10^3/uL (0.0-0.2); BASO % 0.3 % (0.0-1.0); EOS # 0.3 10^3/uL (0.0-0.5); EOS % 2.5 % (0.0-3.0); LYMPH # 2.0 10^3/uL (1.5-5.0); LYMPH % 17.1 % (24.0-44.0); MONO # 0.7 10^3/uL (0.0-0.8); MONO % 5.9 % (2.0-8.0); NEUTROPHILS # 8.7 10^3/uL (1.5-8.5); NEUTROPHILS % 73.9 % (36.0-66.0); PLATELET COUNT, AUTOMATED 279 10^3/uL (150-450)
[2025-08-01 10:42] LABS: CALCIUM LEVEL 8.8 MG/DL (8.5-10.1); CARBON DIOXIDE LEVEL 25 MMOL/L (20-31); CHLORIDE LEVEL 105 MMOL/L (98-107); CREATININE FOR GFR 0.51 MG/DL (0.55-1.30); GLOMERULAR FILTRATION RATE > 90.0 (>60); POTASSIUM SERUM 4.3 MMOL/L (3.5-5.1); SODIUM LEVEL 140 MMOL/L (136-145)
[2025-08-01 11:38] VITALS: BP 142/75; TEMP 97.5; O2SAT 99
== END 2025-08-01 11:45 | disposition home or self-care (01) ==
LOC: M ED 09:52
DX: O20.0 Threatened abortion (principal); O20.8 Other hemorrhage in early pregnancy; O99.340 Other mental disorders complicating pregnancy, unspecified trimester; Z87.59 Personal history of other complications of pregnancy, childbirth and the puerperium

== ENCOUNTER → 2025-08-10 | Outpatient (REF) | payer OTHER | LOC: M LAB REF 16:35 | PROVIDERS: ATTEND Nurse Practitioner Family | DX: Z34.80 Encounter for supervision of other normal pregnancy, unspecified trimester (principal) ==

== ENCOUNTER 2025-08-26 11:36 | Emergency (ER) | payer MEDICAID, OTHER ==
[~2025-08-26] VITALS: Ht 170.2 cm; Wt 113.2 kg
[2025-08-26 12:58] LABS: BASO # 0.0 10^3/uL (0.0-0.2); BASO % 0.3 % (0.0-1.0); EOS # 0.4 10^3/uL (0.0-0.5); EOS % 3.5 % (0.0-3.0); LYMPH # 1.9 10^3/uL (1.5-5.0); LYMPH % 16.9 % (24.0-44.0); MONO # 0.6 10^3/uL (0.0-0.8); MONO % 5.7 % (2.0-8.0); NEUTROPHILS # 8.3 10^3/uL (1.5-8.5); NEUTROPHILS % 73.2 % (36.0-66.0); PLATELET COUNT, AUTOMATED 244 10^3/uL (150-450)
[2025-08-26 13:08] LABS: SOFIA COVID ANTIGEN NEGATIVE (NEGATIVE)
[2025-08-26 13:24] LABS: ALT/SGPT 76 U/L (7.0-40); AST/SGOT 40 U/L (<34); CALCIUM LEVEL 8.7 MG/DL (8.5-10.1); CARBON DIOXIDE LEVEL 24 MMOL/L (20-31); CHLORIDE LEVEL 106 MMOL/L (98-107); CREATININE FOR GFR 0.48 MG/DL (0.55-1.30); GLOMERULAR FILTRATION RATE > 90.0 (>60); POTASSIUM SERUM 4.0 MMOL/L (3.5-5.1); SODIUM LEVEL 140 MMOL/L (136-145)
[2025-08-26 14:27] LABS: CPK CREATINE PHOSPHOKINASE 68 U/L (34-145)
[2025-08-26 14:28] LABS: CK-MB VALUE MASS 1.6 NG/ML (<3.6); MB/CK RELATIVE INDEX 2.35 (< OR =4)
[2025-08-26] MEDS ORDERED: HOME MED LIST COMPLETE! XX SCH (15:15)
[2025-08-26] MEDS: NS (Normal Saline) 0.9% 1,000 ML IV ONE ×2 (15:47→17:10)
[2025-08-26 16:41] LABS: APPEARANCE, URINE CLOUDY (CLEAR); BACTERIA, URINE AUTO NEGATIVE (NEGATIVE); BILIRUBIN, URINE AUTO NEGATIVE (NEGATIVE); BLOOD, URINE BLOOD 3+ (NEGATIVE); GLUCOSE, URINE (UA) AUTO NEGATIVE (NEGATIVE); KETONE, URINE AUTO TRACE mg/dL (NEGATIVE); LEUKOCYTE ESTERASE, URINE AUTO 3+ (NEGATIVE); MUCUS, URINE SMALL (NEGATIVE); NITRITE, URINE AUTO NEGATIVE (NEGATIVE); PROTEIN, URINE AUTO NEGATIVE (NEGATIVE); RBC, URINE AUTO 5 /HPF (0-3); SPECIFIC GRAVITY URINE AUTO 1.021 (1.002-1.035); SQUAMOUS EPITHELIAL CELL UR AU 10 /HPF (0-6); UROBILINOGEN, URINE AUTO 0.2 mg/dL (0.0-2.0); WBC, URINE AUTO 11 /HPF (0-3)
[2025-08-26 16:59] VITALS: O2SAT 100
[2025-08-26] MEDS ORDERED: ISOVUE-370 76% 100 ML VIAL As Ordered ONE (19:05)
[2025-08-26 20:23] VITALS: BP 110/55; TEMP 97.6; O2SAT 98
[2025-08-26] MEDS ORDERED: MACR100C43 PO (20:57)
[2025-08-26] MEDS: NITROFURANTOIN 100 MG CAP PO ONE (21:01)
== END 2025-08-26 21:06 | disposition home or self-care (01) ==
LOC: M ED 11:36
DX: O99.891 Other specified diseases and conditions complicating pregnancy (principal); O23.42 Unspecified infection of urinary tract in pregnancy, second trimester; O20.8 Other hemorrhage in early pregnancy; O99.212 Obesity complicating pregnancy, second trimester; Z3A.16 16 weeks gestation of pregnancy; Z88.0 Allergy status to penicillin
CPT/HCPCS: 71275; 76811; 80048; 80076; 81001; 82550; 82553; 84443; 84484; 85025; 85379; 86850; 86900; 86901; 87086; 87428; 87486; 87581; 87633; 87798; 93005; 93971; 96360; 96361; 99285; Q9967